=== PATIENT | female | born 2000 | race African-American/Black ===

== ENCOUNTER 2020-09-08 17:51 | Emergency (ER) | payer OTHER ==
[~2020-09-08] VITALS: Ht 160 cm; Wt 97.0 kg
[2020-09-08] MEDS ORDERED: ACETAMINOPHEN 500 MG TABLET PO ONE (18:30)
[2020-09-08] MEDS ORDERED: CYCLOBENZAPRINE 10MG 4TABLET STARTPACK PO ONE (19:30)
[2020-09-08] MEDS ORDERED: CYCL-331 PO (19:32)
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
[2020-09-08 19:47] VITALS: BP 116/62
== END 2020-09-08 19:49 | disposition home or self-care (01) ==
LOC: ER 17:51
DX: S13.4XXA Sprain of ligaments of cervical spine, initial encounter (principal); J45.909 Unspecified asthma, uncomplicated; G43.909 Migraine, unspecified, not intractable, without status migrainosus; V89.2XXA Person injured in unspecified motor-vehicle accident, traffic, initial encounter; Y93.I9 Activity, other involving external motion; Y92.89 Other specified places as the place of occurrence of the external cause; Y99.8 Other external cause status
CPT/HCPCS: 99283